=== PATIENT | male | born 1960 | race Two or more races ===

== ENCOUNTER 2023-01-09 18:17 | Emergency (ER) | payer MEDICAID ==
[~2023-01-09] VITALS: Ht 175.3 cm; Wt 104.3 kg
[~2023-01-09 18:17] MED LIST: DIAZ5TAB PO; ONDA8TAB9 PO
[2023-01-09 19:21] LABS: BASOPHILS # (AUTO) 0.1 X10'3 (0-0.2); BASOPHILS % (AUTO) 0.5 % (0-1); EOSINOPHILS # (AUTO) 0.1 X10'3 (0-0.9); EOSINOPHILS % (AUTO) 0.8 % (0-6); HEMATOCRIT 37.2 % (42.0-52.0); HEMOGLOBIN 11.6 g/dl (14.0-17.9); LYMPHOCYTES # (AUTO) 3.7 X10'3 (1.1-4.8); LYMPHOCYTES % (AUTO) 24.9 % (21-51); MEAN CORPUSCULAR HGB CONC 31.1 g/dL (33.0-36.5); MEAN CORPUSCULAR VOLUME 67.7 FL (78-98); MEAN PLATELET VOLUME 8.4 FL (7.4-10.4); MONOCYTES # (AUTO) 1.7 X10'3 (0-0.9); MONOCYTES % (AUTO) 11.8 % (2-12); NEUTROPHILS # (AUTO) 9.2 X10'3 (1.8-7.7); PLATELET COUNT 290 X10'3 (140-440); RED CELL DISTRIBUTION WIDTH 16.4 % (11.5-14.5); WHITE BLOOD COUNT 14.8 X10'3 (4.5-11.0)
[2023-01-09 19:23] LABS: ALANINE AMINOTRANSFERASE 61 U/L (12-78); ALBUMIN 3.7 G/DL (3.4-5.0); ALBUMIN/GLOBULIN RATIO 0.9 (1.1-1.5); ALKALINE PHOSPHATASE 65 IU/L (46-116); ANION GAP 8 (8-16); ASPARTATE AMINO TRANSFERASE 45 U/L (10-37); BILIRUBIN,TOTAL 0.3 MG/DL (0.1-1.0); BLOOD UREA NITROGEN 13 MG/DL (7-18); BUN/CREATININE RATIO 13.3 (10.0-20.0); CALCIUM 9.8 MG/DL (8.5-10.1); CHLORIDE 103 MMOL/L (99-107); CREATININE 0.98 MG/DL (0.60-1.10); GLUCOSE 119 MG/DL (70-104); LIPASE 144 U/L (73-393); POTASSIUM 4.3 MMOL/L (3.5-5.1); SODIUM 138 MMOL/L (135-145); TOTAL CARBON DIOXIDE 26.6 MMOL/L (24-32); TOTAL PROTEIN 7.7 G/DL (6.4-8.2); eGFR 77 ML/MIN
[2023-01-09 20:16] LABS: PLATELET ESTIMATE NORMAL
[2023-01-09 20:17] LABS: ANISOCYTOSIS 1+
[2023-01-09 20:50] LABS: CLARITY,URINE SLIGHTLY CLOUDY (Clear); COLOR,URINE YELLOW (Yellow); GLUCOSE, URINE NEGATIVE (Neg); KETONES,URINE TRACE mg/dl (Neg); LEUKOCYTE ESTERASE ,URINE NEGATIVE (Neg); NITRITES, URINE NEGATIVE (Neg); OCCULT BLOOD,URINE LARGE (Neg); PH,URINE 5.5 (4.8-8.0); PROTEIN,URINE NEGATIVE (Neg); UROBILINOGEN,URINE 0.2 E.U/dL (0.2-1.0)
[2023-01-09 20:59] LABS: UA COLLECTION TYPE CLN CATCH MIDSTREAM; WBC,URINE 0-4 /HPF (0-4)
[2023-01-09 21:00] LABS: BACTERIA,URINE FEW /HPF (Neg); MUCUS STRANDS FEW /LPF (Neg); RBC,URINE 20-50 /HPF (0-2); SQUAMOUS EPITHELIAL CELL,UR FEW /LPF (FEW)
[2023-01-09] MEDS ORDERED: normal saline 1000ml 1,000 ML IV ONE ×2 (21:40→22:10)
[2023-01-09] MEDS ORDERED: ketorolac trometh. 30mg/ml inj. IV ONE (22:10)
[2023-01-09] MEDS ORDERED: ondansetron/PF 4mg/2ml inj IV ONE (22:10)
[2023-01-09] MEDS ORDERED: morphine 4 MG/ML inj SYRINge IV ONE (22:10)
[2023-01-09] MEDS ORDERED: tamsulosin 0.4mg capsule PO STA (22:10)
[2023-01-09] MEDS ORDERED: OXYC-150 PO (22:14)
[2023-01-09] MEDS ORDERED: FLO0.4C PO (22:14)
[2023-01-09] MEDS ORDERED: ONDA4TAB12 PO (22:14)
[2023-01-09 22:57] VITALS: BP 143/79
[2023-01-09] MEDS ORDERED: oxyCODONE/APAP 10/325mg tablet PO ONE (23:20)
== END 2023-01-09 23:27 | disposition home or self-care (01) ==
LOC: ER 18:18
DX: N20.0 Calculus of kidney (principal); E11.9 Type 2 diabetes mellitus without complications; Z79.899 Other long term (current) drug therapy
CPT/HCPCS: 36415; 74176; 80053; 81001; 83690; 85008; 85025; 96361; 96374; 96375; 99285; J1885; J2270; J2405; J7030

== ENCOUNTER 2023-01-14 15:10 | Emergency (ER) | payer MEDICAID ==
[~2023-01-14] VITALS: Ht 172.7 cm; Wt 106.8 kg
[~2023-01-14 15:10] MED LIST changes: +FLO0.4C PO; +ONDA4TAB12 PO; +OXYC-150 PO
[2023-01-14] MEDS ORDERED: NA P133E4 RC (20:07)
[2023-01-14] MEDS ORDERED: MAGN296S68 PO (20:07)
[2023-01-14 20:18] VITALS: BP 119/67
== END 2023-01-14 20:20 | disposition home or self-care (01) ==
LOC: ER 15:10
DX: K59.00 Constipation, unspecified (principal); E11.9 Type 2 diabetes mellitus without complications; Z87.442 Personal history of urinary calculi; Z79.899 Other long term (current) drug therapy
CPT/HCPCS: 99282